=== PATIENT | male | born 1955 | race Caucasian/White ===

== ENCOUNTER 2022-09-17 09:13 | Outpatient (CLI) | payer MEDICARE, BC, SELFPAY | END 2022-09-17 09:14 | disposition home or self-care (01) | PROVIDERS: PCP Surgery; Visit Provider Family Medicine | DX: M17.11 Unilateral primary osteoarthritis, right knee (principal); M25.561 Pain in right knee | CPT/HCPCS: 64454; J2250; J3010 ==

== ENCOUNTER 2022-10-05 12:06 | Outpatient (CLI) | payer MEDICARE, BC, SELFPAY | END 2022-10-05 12:07 | disposition home or self-care (01) | PROVIDERS: PCP Surgery; Visit Provider Family Medicine | DX: M17.11 Unilateral primary osteoarthritis, right knee (principal); G89.29 Other chronic pain; M25.561 Pain in right knee | CPT/HCPCS: 64624; J2250; J3010 ==

== ENCOUNTER 2022-10-12 07:27 | Outpatient (CLI) | payer MEDICARE, BC, SELFPAY | END 2022-10-12 07:28 | disposition home or self-care (01) | LOC: INJ CL 07:28 | PROVIDERS: PCP Surgery; Visit Provider Family Medicine | DX: M54.16 Radiculopathy, lumbar region (principal) | CPT/HCPCS: 64483; J1100; Q9966 ==

== ENCOUNTER 2023-09-02 14:40 | Emergency (ER) | payer MEDICARE, BC, SELFPAY ==
[2023-09-02 14:52] VITALS: BP 137/80; PULSE 70; RESP 16; TEMP 37; O2SAT 96; BMI 33.0
--- NOTE | 2023-09-02 15:01 | ED_ITS ---
HPI - General Adult General Chief complaint: Ear/Nose/Throat Problem Stated complaint: bleeding out of L ear, surgery neck aug 04 Time Seen by Provider: 09/02/23 15:00 History of Present Illness HPI narrative: at 1400 pt went to use air compressor to clean out vacuum, put on ear muffs and noticed bleeding from L ear. put ear muffs back on to finish cleaning it and blood gush out of L ear. 08/04 had neck surgery in [place]. 68-year-old man presenting to the emergency department with concern bleeding from his left ear. Is accompanied by spouse. Did have a recent neck procedure/surgery and is concerned about potentially related bleed. About an hour prior to this interview had been doing some cleaning. This did involve an air compressor and it did not go near his ear. However I believe prior to this placed on some ear muffs and then noted some bleeding from this left ear. Finishing cleaning remove the ear muffs and then more blood was noted. The presented promptly to the emergency department with understandable concern. No bleeding specific to surgical wound. Is not anticoagulated Related Data Home Medications Medication Instructions Recorded Confirmed atorvastatin 20 mg tablet 20 mg PO QPM 09/02/23 09/02/23 celecoxib 200 mg capsule 200 mg PO DAILY 09/02/23 09/02/23 gabapentin 300 mg capsule 600 mg PO 3XD 09/02/23 09/02/23 tamsulosin 0.4 mg capsule 0.4 mg PO DAILY 09/02/23 09/02/23 Allergies Allergy/AdvReac Type Severity Reaction Status Date / Time amoxicillin Allergy Unknown Verified 09/02/23 14:56 Review of Systems Status of ROS: Reports: 6 or more systems reviewed and unremarkable except as noted in History and below PFSH PENDING SALE TO [facility] Social History Smoking Status: Unknown if ever smoked Exam Narrative: Exam Narrative: Very pleasant. Breathing easily. Skin is warm and dry. Neck is supple. Surgical incision is well healing without swelling in his neck. Examination of the right ear is unremarkable. Examination of the left ear after cleaning away some dried blood, I do not see any bleeding within the ear canal. There is no tenderness in particular palpation or movement of the tragus or pinna. There are 2 very fine neck is in the upper outer aspect of the pinna. The larger of the 2 oozes just a little once manipulated. Const: Vital Signs, click to edit/add: Vital Signs - 24 hr 09/02/23 14:52 Temperature 98.6 F Pulse Rate [Pulse Oximeter] 70 Respiratory Rate 16 Blood Pressure [Le ft Upper Arm] 137/80 Pulse Oximetry 96 Oxygen Delivery Me thod Room Air Documenting provider has reviewed patient's vital signs: yes Course Vital Signs Vital signs: Initial Vital Signs Temperature 98.6 F 09/02/23 14:52 Temperature Source Temporal Artery Scan 09/02/23 14:52 Pulse Rate 70 09/02/23 14:52 Respiratory Rate 16 09/02/23 14:52 Blood Pressure 137/80 09/02/23 14:52 Blood Pressure Mean 99 09/02/23 14:52 Pulse Oximetry 96 09/02/23 14:52 Oxygen Delivery Method Room Air 09/02/23 14:52 Vital Signs Temperature 98.6 F 09/02/23 14:52 Pulse Rate 70 09/02/23 14:52 Respiratory Rate 16 09/02/23 14:52 Blood Pressure 137/80 09/02/23 14:52 Pulse Oximetry 96 09/02/23 14:52 Oxygen Delivery Method Room Air 09/02/23 14:52 Temperature 98.6 F 09/02/23 14:52 Pulse Rate 70 09/02/23 14:52 Respiratory Rate 16 09/02/23 14:52 Blood Pressure 137/80 09/02/23 14:52 Pulse Oximetry 96 09/02/23 14:52 Oxygen Delivery Method Room Air 09/02/23 14:52 Medical Decision Making MDM Narrative Medical decision making narrative: Seems quite surprised and a little embarrassed that this is a relatively minor issue. I note that can be remarkable amount of blood in this area, the head. Silver nitrate to further control bleeding. See patient discharge plan Discharge Plan Discharge Clinical Impression: Laceration of ear, external, left Additional Instructions: Just monitor for further bleeding. Would apply pressure in that case. If ranulfo ot get control in an hour, return to the emergency department. Prescriptions: No Action celecoxib 200 mg capsule 200 mg PO DAILY atorvastatin 20 mg tablet 20 mg PO QPM tamsulosin 0.4 mg capsule 0.4 mg PO DAILY gabapentin 300 mg capsule 600 mg PO 3XD Follow Up/Referrals: Elliott Kelley MD [Primary Care Provider] - Stand Alone Forms: [facility] Info Instructions
== END 2023-09-02 15:33 | disposition home or self-care (01) ==
PROVIDERS: Emergency Provider Family Medicine; PCP Surgery
DX: S01.312A Laceration without foreign body of left ear, initial encounter (principal); W26.9XXA Contact with unspecified sharp object(s), initial encounter
CPT/HCPCS: 99282; 99283

== ENCOUNTER 2023-11-07 09:00 | Outpatient (RCR) | payer OTHER, MEDICARE, BC, SELFPAY | END 2023-11-23 09:01 | disposition home or self-care (01) | PROVIDERS: PCP Surgery; Visit Provider Orthopaedic Surgery | DX: M54.2 Cervicalgia (principal); Z98.890 Other specified postprocedural states; R29.898 Other symptoms and signs involving the musculoskeletal system; Z51.89 Encounter for other specified aftercare | CPT/HCPCS: 97110; 97140; 97161 ==

== ENCOUNTER 2024-03-06 12:33 | Outpatient (CLI) | payer MEDICARE, BC, SELFPAY | END 2024-03-06 12:34 | disposition home or self-care (01) | LOC: INJ CL 12:34 | PROVIDERS: PCP Surgery; Visit Provider Family Medicine | DX: M17.11 Unilateral primary osteoarthritis, right knee (principal); M25.561 Pain in right knee | CPT/HCPCS: 64454 ==

== ENCOUNTER 2024-03-27 11:58 | Outpatient (CLI) | payer MEDICARE, BC, SELFPAY | END 2024-03-27 11:59 | disposition home or self-care (01) | LOC: INJ CL 11:59 | PROVIDERS: PCP Surgery; Visit Provider Family Medicine | DX: M17.11 Unilateral primary osteoarthritis, right knee (principal); M25.561 Pain in right knee; G89.29 Other chronic pain | CPT/HCPCS: 64624 ==

== ENCOUNTER 2024-07-17 07:02 | Outpatient (CLI) | payer MEDICARE, BC, SELFPAY | END 2024-07-17 07:03 | disposition home or self-care (01) | LOC: INJ CL 07:03 | PROVIDERS: PCP Surgery; Visit Provider Family Medicine | DX: M54.16 Radiculopathy, lumbar region (principal); M51.369 Other intervertebral disc degeneration, lumbar region without mention of lumbar back pain or lower extremity pain | CPT/HCPCS: 64483; J1100; Q9966 ==

== ENCOUNTER 2024-09-07 12:26 | Emergency (ER) | payer MEDICARE, BC, SELFPAY ==
--- OUTSIDE RECORDS SUMMARY | 2024-09-07 12:29 | XMS_ITS | Encounter Summary ---
Author Organization [facility] Address [address] [place] [address] Care Team Providers Care Box Turner Name Role Phone Unavailable Primary Care Provider Unavailabl e Encounter Details Date Type Department Care Team (Late st Contact Info) Description 10/01/2011 Historical Ophthalmology RST OPH Vince Nolan M.D. 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 - 10/01/2011 8:10 AM CST Eye General CHIEF COMPLAINT follow-up after PTK HISTORY OF PRESENT ILLNESS Comfortable, vision stable. IMPRESSION / REPORT / PLAN #1 s/p Phototherapeutic keratectomy, left eye. Doing well. Removed BCL, epi intact. Moxifloxacin 0.5%, 1 drop 4x/day into operative eye per instructions. Prednisolone acetate 1%, 1 drop 4x/day into operative eye and taper per instructions. Call if decreased vision, increased photophobia, pain, discharge or increased redness occurs. Follow-up in 5-6 weeks DIAGNOSIS #1 s/p Phototherapeutic keratectomy, left eye. CDM Reports - EYEGEN Id: [id number] Status: Fnl documented in this encounter Plan of Treatment Not on file documented as of this encounter Visit Diagnoses Not on filedocumented in this encounter
--- OUTSIDE RECORDS SUMMARY | 2024-09-07 12:29 | XMS_ITS ---
Author Organization [facility] Address [address] [place] [address] Care Team Providers Care Dirt Supervisor Name Role Phone Unavailable Unavailable Unavailable Surgery Details Not on file Complications Check Surgery Details section. Procedure Estimated Blood Loss Check Surgery Details section. Procedure Findings Check Surgery Details section. Procedure Specimens Taken Check Surgery Details section.
--- OUTSIDE RECORDS SUMMARY | 2024-09-07 12:29 | XMS_ITS | Encounter Summary ---
Author Organization [facility] Address [address] [place] [address] Care Team Providers Care Perinatal Specialist Name Role Phone Unavailable Primary Care Provider Unavailabl e Encounter Details Date Type Department Care Team (Late st Contact Info) Description 09/09/2011 Historical Ophthalmology RST OPH Vince Nolan M.D. 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 - 09/09/2011 9:54 AM CST Eye General CHIEF COMPLAINT Left eye blurred vision. HISTORY OF PRESENT ILLNESS Foreign body left eye with resulting corneal scar left eye in 2009., causing blurred vision . No irritation or mattering either eye. History of floaters both eyes. 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 Spectacle correction does not give good vision. No pain or other associated symptoms. IMPRESSION / REPORT / PLAN TOPOGPRAPHY ACQUIRED: irregular astigmatism, left eye; normal right eye #1 Corneal scar, left eye Causing #2, though RGP over-refraction did not make a big subjective improvement. Opacity might be contributing and does have some epi irregularity. Discussed options Plan: PTK left eye (he asked about refractive correction/PRK, but does not want out of pocket expense) #2 Irregular astigmatism, left eye Secondary to #1 DIAGNOSIS #1 Corneal scar, left eye #2 Irregular astigmatism, left eye CDM Reports - EYEGEN Id: [id number] Status: Fnl documented in this encounter Plan of Treatment Not on file documented as of this encounter Visit Diagnoses Not on filedocumented in this encounter
--- OUTSIDE RECORDS SUMMARY | 2024-09-07 12:29 | XMS_ITS | Encounter Summary ---
Author Organization [facility] Address [address] [place] [address] Care Team Providers Care Online Communications Specialist Name Role Phone Unavailable Primary Care Provider Unavailabl e Encounter Details Date Type Department Care Team (Late st Contact Info) Description 09/29/2011 Historical Ophthalmology RST OPH Vince Nolan M.D. 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 - 09/29/2011 7:23 AM CST Eye General CHIEF COMPLAINT one day s/p PTK left eye HISTORY OF PRESENT ILLNESS Tearing left eye this morning. Slight scratchy feeling left eye. IMPRESSION / REPORT / PLAN #1 s/p Phototherapeutic keratectomy, left eye. Doing well. Moxifloxacin 0.5%, 1 drop 4x/day into operative eye. Prednisolone acetate 1%, 1 drop 4x/day into operative eye. Call if decreased vision, increased photophobia, pain, discharge or increased redness occurs. Follow-up in 2 days. DIAGNOSIS #1 s/p Phototherapeutic keratectomy, left eye. CDM Reports - EYEGEN Id: [id number] Status: Fnl documented in this encounter Plan of Treatment Not on file documented as of this encounter Visit Diagnoses Not on filedocumented in this encounter
--- OUTSIDE RECORDS SUMMARY | 2024-09-07 12:29 | XMS_ITS | Clinical Summary ---
Author Organization [facility] Address [place], [place] [address] Care Team Providers Care Sales Forecast Analyst Name Role Phone Kb Durant MD [facility] Elliott Duarte MD Primary Care Provider [phone] Allergies Active Allergy Reactions Criticality Noted Date Comments Adhesive Tape-Silicones Contact Dermatitis,Rash Medium 10/17/2019 blisters Amoxicillin Rash Medium 12/30/2006 Latex Rash Medium 08/04/2023 Medications FISH OIL 1,000 MG CAP Take 1 Capsule by mouth once daily. 0 0 03/27/20 09 Active cycloSPORINE (RESTASIS) 0.05 % ophthalmic emulsion Place 1 Drop into both eyes 2 times daily. 0 04/16/20 13 Active cholecalciferol (VITAMIN D3) 1,000 unit capsule Take 1,000 units by mouth once daily. Active polyethylene glycoL (MIRALAX) 17 gram/dose powder Take 17 g by mouth once daily if needed for Constipation. Active sennosides-docusa te, 8.6-50 mg, (SENOKOT S) 8.6-50 mg tablet Take 1 tablet by mouth 2 times daily. 05/19/20 18 Active SUMAtriptan (IMITREX) 100 mg tabletIndications :Other migraine without status migrainosus, not intractable Take 1 Tablet (100 mg) by mouth 2 times daily if needed for Headache. 12 Tablet 04/06/20 23 Active acetaminophen (Tylenol Extra Strength) 500 mg tabletIndications :pain Take 1,000 mg by mouth every 6 hours if needed for Pain. Max acetaminophen dose: 4000mg in 24 hrs. Active fexofenadine (LYRIC) 180 mg tablet Take 180 mg by mouth one time if needed. Active sildenafiL, pulm.hypertension , (REVATIO) 20 mg tabletIndications :Erectile dysfunction, unspecified erectile dysfunction type Take 1 to 5 tablets by mouth 30 mins prior to sexual intercourse. start at 1 tablet and increase next time if needed 30 Tablet 11 05/10/20 24 Active diclofenac topical (VOLTAREN) 1 % gelIndications:Ch ronic pain of both knees Apply 4 g topically to affected area(s) four times daily. 200 g 06/30/20 24 Active atorvastatin (LIPITOR) 20 mg tabletIndications :Hyperlipidemia, unspecified hyperlipidemia type Take 1 Tablet (20 mg) by mouth at bedtime. 90 Tablet 3 07/12/20 24 Active celecoxib (CELEBREX) 200 mg capsuleIndication s:Foraminal stenosis of cervical region Take 1 Capsule (200 mg) by mouth once daily with a meal. 90 Capsule 3 07/12/20 24 Active gabapentin (NEURONTIN) 600 mg tabletIndications :Lumbar radiculopathy,For aminal stenosis of cervical region Take 1 Tablet (600 mg) by mouth three times daily. 270 Tablet 3 07/12/20 24 Active tamsulosin 0.4 mg capsuleIndication s:Benign prostatic hyperplasia, unspecified whether lower urinary tract symptoms present Take 1 Capsule (0.4 mg) by mouth once daily after a meal. 90 Capsule 3 07/12/20 24 Active clotrimazole (LOTRIMIN) 1 % creamIndications: Balanitis Apply topically to affected area(s) two times daily. 45 g 3 07/12/20 24 Active mupirocin 2% ointmentIndicatio ns:Nasal sore Apply topically to nose twice a day for 2 weeks. 22 g 08/16/20 24 Active azelastine 137 mcg/actuation (ASTELIN) nasal sprayIndications: Chronic nasal congestion Inhale 2 Sprays into affected nostril(s) two times daily. 90 mL 3 08/16/20 24 Active fluticasone (50 mcg per actuation) nasal solution (FLONASE)Indicati ons:Dysfunction of right eustachian tube Inhale 2 Sprays in both nostrils once daily. 48 g 3 08/16/20 24 Active azelastine 137 mcg/actuation (ASTELIN) nasal sprayIndications: Chronic nasal congestion Inhale 2 Sprays into affected nostril(s) two times daily. 60 mL 3 07/12/20 24 024 Discontin ued(Reord er (E-cancel not sent)) fluticasone (50 mcg per actuation) nasal solution (FLONASE)Indicati ons:Dysfunction of right eustachian tube Inhale 1 [place] in both nostrils once daily. 48 g 3 07/12/20 24 024 Discontin ued(Reord er (E-cancel not sent)) Active Problems Problem Noted Date Diagnosed Date Serrated adenoma of colon 07/12/2024 Overview (07/12/2024): 4 mm polyp removed on colonoscopy 11/09/2019 - 5-10 year follow up recommended - patient prefers earlier follow up Primary osteoarthritis of right knee 11/19/2023 Overview (12/07/2023): Jun 2022; right knee cortisone injection. October 2023: repeat right knee cortisone injection. December 06, 2023: Synvisc One injection. Hyperlipidemia 05/24/2023 Benign prostatic hyperplasia 05/24/2023 Not currently working due to disabled status Prostatitis 12/29/2015 Migraine 12/03/2013 History of tympanostomy 11/28/2012 Overview (11/28/2012): right ear, treatment for pressure; Per ENT patient should be keeping right ear dry. Lavage should not be attempted. Bilateral asymmetric sensorineural hearing loss 11/28/2012 Overview (11/28/2012): left ear Degeneration of lumbar or lumbosacral interverte bral disc 08/18/2011 Active M ni re's disease, cochleovestibular 07/30/2011 Overview (11/29/2012): Vertigo, dizziness, aural pressure, tinnitus Resolved Problems Problem Noted Date Diagnosed Date Resolved Date Biventricular congestive heart failure 02/05/2022 02/05/2022 Pelvic pain in male 12/29/2015 05/24/20 23 History of falling 11/29/2012 3 Overview (11/29/2012): twice in the last year Subjective tinnitus 11/29/2012 05/24/20 23 Overview (11/29/2012): Reportedly exacerbated by cigarette smoke Mixed hearing loss, unilateral 11/28/2012 08/25/2017 Overview (11/28/2012): right ear Screen for colon cancer 09/22/201104/30 Overview (09/22/2011): Colonoscopy 08/2011 normal repeat in 10 years Encounters Date Type Department Care Team Description 09/07/2024 Nurse Triage [facility] [address] [place] [address] Elliott Kelley MD Shoulder Injury 09/07/2024 Nurse Triage [facility] [address] [place] [address] Elliott Kelley MD 09/03/2024 10:02 AM MEASUREMENT SPECIALIST - 09/03/2024 11:59 PM MEASUREMENT SPECIALIST Hospital Encounter [facility] [address] [place] [address] Shahriar Duarte MD Pain of cervical spine 09/03/2024 Travel 08/17/2024 1:45 PM MEASUREMENT SPECIALIST Office Visit [facility] [address] [place] [address] Hay Davidson MD Testing (EMG bilateral upper extremities/) 08/17/2024 Travel 08/16/2024 Telephone [facility] [address] [place] [address] Teddy Mendoza MD Results (MRI results.) 08/16/2024 Telephone [facility] [address] [place] [address] Elliott Kelley MD Medication Management (fluticasone (50 mcg per actuation) nasal solution (FLONASE)/azelastine 137 mcg/actuation (ASTELIN) nasal spray/) 08/15/2024 Orders Only [facility] Scanner 1 scan: (1-Ord) TAREEN DERMATOLOGY, BIOPSY BY SHAVE METHOD, 08/15/2024 08/15/2024 Refill [facility] [address] [place] [address] Elliott Kelley MD Refill Request (Mupirocin) 08/14/2024 Transcribe Orders [facility] [address] [place] [address] Shahriar Duarte MD 07/30/2024 8:30 AM MEASUREMENT SPECIALIST Office Visit [facility] [address] [place] [address] Malissa Otoole AuD Hearing Problem (Hearing test) 07/30/2024 Travel 07/17/2024 7:40 AM MEASUREMENT SPECIALIST Office Visit [facility] at [address] [phone] Teddy Mendoza MD Procedure (Bilateral L3-4 TFESI) 07/12/2024 9:00 AM MEASUREMENT SPECIALIST Office Visit [facility] [address] [place] [address] Elliott Kelley MD Medicare ANNUAL (subsequent) Visit (68 yr old male) 07/12/2024 Travel 07/03/2024 Refill [facility] [address] [place] [address] Elliott Kelley MD Refill Request (Azelastine 137 Mcg/actuation) 06/26/2024 Refill [facility] [address] [place] [address] Elliott Kelley MD Refill Request (Diclofenac Topical) 06/14/2024 8:40 AM CDT Office Visit [facility] [address] [place] [address] Teddy Mendoza MD Musculoskeletal Problem (R knee pain, Back pain ) 06/14/2024 Travel from Last 3 Months Immunizations Name Administration Dates Next Due AMB Influenza, IIV3 (Age >=3 years)(Flu Clinic Only) 06/28/2012,07/17/2010,06/20/2008 AMB Influenza, IIV4 PF (=>6 mos Flulaval,Fluzone Fluarix)(Flu Clinic Only) 06/06/2020,06/08/2016 COVID-19 vaccine (Pfizer-Bio NTech 30mcg/0.3mL) 12YO+ ERIC-SUCROSE PF, MDV 01/11/2022 COVID-19 vaccine (Pfizer-Bio NTech 30mcg/0.3mL) PF, MDV 12/03/2020,11/12/2020 DTaP 12/22/2009 Hepatitis B (Adult) 08/05/2003,07/05/2003 Hepatitis B (Peds) 01/15/2004 Hepatitis B, Unspecified 01/15/2004,08/05/2003,1 09/04/2002 Influenza A (H1N1), Inactivated 08/19/2009 Influenza A (H1N1), Inactiva kary (Age >=3 Years) 08/19/2009 Influenza Virus, Unspecified 05/10/2019, 04/27/2018,07/17/2010,08/05,06/20/2008,06/14/2007 Influenza, High-dose Inactivated 06/11/2024 Influenza, High-dose Quadriv alent Inactivated 06/29/2023,07/02/2022 Influenza, IIV3 (Age 6-35 mos) 06/11/2011,2008 Influenza, IIV3 (Age >=3 years) 05/17/20 13,06/28/2012,06/11/2011,07/17,08/05/2009,06/20/2008,06/14/2007 Influenza, IIV4 06/10/2021, 9,04/19/2018,06/08,06/25/2015,05/24/2014 Influenza, IIV4 (=>6mos) MDV 06/24/2017 Pneumococcal Conj 20-valent (Prevnar 20) 02/23/2022 RSV, Recombinant ADJ Reconst ituted (Arexvy 120MCG/0.5mL) 07/12/2023 Td (Age >=7 Years) 04/09/1997 Tdap 09/25/2020,12/22/2009 Zoster (Shingrix-RZV, recombinant) 05/01/2021, Zoster (Zostavax-ZVL, live) 02/18/2017 Family History Medical History Relation Name Comments Other Brother 1 Prostate issues Heart attack Brother 2 COPD Brother 3 Cancer Father Unknown primary - possibly bladder Heart attack Father Other Father heart valve rep lacement Stroke Father Hypertension Mother Thyroid Disease Sister 1 Cancer-colon No Family History Relation Name Status Comments Brother 1 Alive Brother 2 Alive Brother 3 Alive Brother 4 Alive Father (Age 67) Pancreas c ancer Mother (Age 83) Cerebral a neurysm Sister 1 Alive Sister 2 Alive Sister 3 Alive Social History Tobacco Use Types Packs/Day Years Used Date Smoking Tobacco: Former Cigarettes Q uit: 08/29/1994 Smokeless Tobacco: Never Tobacco Cessation:Counseling Given: No Alcohol Use Standard Drinks/Week Comments No 0 (1 standard drink = 0.6 oz pur e alcohol) PHQ-2 Answer Date Recorded PHQ-2 TOTAL SCORE 0 07/12/2024 Social Connections Answer Date Recorded Do you often feel lonely or isolated from those around you? 0 08/04/2023 Financial Resource Strain Answer Date R ecorded Difficulty of Paying Living Expenses 3 08/04/2023 Difficulty of Paying Living Expenses Not on file 08/04/2023 Food Insecurity Answer Date Recorded Do you worry your food will run out before you are able to buy more? 1 08/04/2023 Transportation Needs Answer Date Record ed Does lack of transportation keep you from medica l appointments? 1 08/04/2023 Does lack of transportation keep you from work, meetings or getting things that you need? 1 08/04/2023 Housing Stability Answer Date Recorded What is your housing situation today? 1 08/04/2023 Sex and Gender Information Value Date Recorded Sex Assigned at Not on file Legal Sex Male 7:16 AM MEASUREMENT SPECIALIST Gender Identity Not on file Sexual Orientation Not on file Occupation Industry Job Start Date Job End Date disabled Not on file Not on file Not on file Obstetrics History Last Filed Vital Signs Vital Sign Reading Time Taken Comments Blood Pressure 134/72 07/12/2024 9:09 AM MEASUREMENT SPECIALIST Pulse 65 07/12/2024 9:09 AM MEASUREMENT SPECIALIST Temperature 36.6 C (97.9 F) 06/14/2024 8:41 AM CDT Respiratory Rate 15 08/06/2023 6:44 AM MEASUREMENT SPECIALIST Oxygen Saturation 99% 07/12/2024 9:09 AM MEASUREMENT SPECIALIST Inhaled Oxygen Concentration - - Weight 97.2 kg (214 lb 3.2 oz) 07/12/2024 9:09 A M MEASUREMENT SPECIALIST Height 172.7 cm (5' 8) 07/12/2024 9:09 AM MEASUREMENT SPECIALIST Body Mass Index 32.57 07/12/2024 9:09 AM MEASUREMENT SPECIALIST Plan of Treatment Upcoming Encounters Date Type Department Care Team (Late st Contact Info) Description 09/13/2024 8:00 AM MEASUREMENT SPECIALIST Office Visit [facility] [address] [place] [address] Teddy Mendoza MD [address] [place] [address] Health Maintenance Due Date Last Done Comments Colonoscopy through age 75 11/08/202411/08 (Verified in Care Everywhere or Patient Record), 09/22/2011, 09/22/2011 BMI (ht and wt on same day) for age 18+ 07/12/2025 07/12/2024, 05/24/2023, 02/14/2023, Additional history exists Depression screening for age 12+ 07/12/2025 07/12/2024, 05/24/2023, 02/14/2023, Additional history exists Medicare Wellness for age 65+ 07/13/2025, 05/24/2023, 02/23/2022, Additional history exists Lipids for age 45-75 07/12/2029 07/12/2024, 05/24/2023, 02/23/2022, Additional history exists Tetanus booster 09/25/2030 09/25/2020, 11/28, 04/09/1997 Tdap Completed 09/25/2020, 12/22/2009 Hepatitis C screening for ag e 18-79 Completed 10/16/2020, 09/25/2020 Zoster (shingles) series for age 50+ Completed 05/01/2021, 09/25/2020, 02/18/2017 Pneumococcal series for age 50+ Completed RSV vaccine for adults or Completed 07/12/2023 AAA screening age 65-74 Completed 07/18/2023, 01/08 Influenza for age 65+ Completed 06/11/2024 , 06/29/2023, 07/02/2022, Additional history exists COVID-19 vaccine series Completed 08/15/20, 03/14/2024, 07/12/2023, Additional history exists Medical Devices Implanted Type Area Soft Tile Setter Device Identifier Shelf Expiration Date Model / Serial / Lot Ifuse-3d Implanted:Qt y: 1 on 07/17/2020 by Shahriar Duarte MD at [facility] Left: Sacrum [employer] 09/25/2024 / 7065M-90 / [id number] [id number] Putty Implanted:Qt y: 1 on 07/17/2020 by Shahriar Duarte MD at [facility] Left: Sacrum Musculoskeletal Transplant 11/02/2021 / [id number] / Ifuse-3d Implanted:Qt y: 1 on 07/17/2020 by Shahriar Duarte MD at [facility] Left: Sacrum [employer] 03/19/2025 / [id number]-90 / [id number] Ifuse-3d Implanted:Qt y: 1 on 07/17/2020 by Shahirar Duarte MD at [facility] Left: Sacrum [employer] 06/26/2024 / [id number]-90 / [id number] Set Screws And Nuts Implanted:Qt y: 6 on 08/04/2023 by Shahriar Duarte MD at [facility] N/A: Cervical Vertebrae Baydin 1020-00-000 / / Pre-Cut, Pre-Lordosed Nik; Titanium Alloy Implanted:Qt y: 2 on 08/04/2023 by Shahriar Duarte MD at [facility] N/A: Cervical Vertebrae Baydin 1020-64-055 / / Morpheus 6cc - [id number] Implanted:Qt y: 1 on 08/04/2023 by Shahriar Duarte MD at [facility] N/A: Cervical Vertebrae RE-BIOG 12/09/2025 BIOGENNIX / / [id number] Bone Chips 30cc - [id number] Implanted:Qt y: 1 on 08/04/2023 by Shahriar Duarte MD at [facility] N/A: Cervical Vertebrae RE-MTF 04/05/2026 [id number] / / [id number] 51 4.0 Mm Polyaxial Screws Implanted:Qt y: 2 on 08/04/2023 by Shahriar Duarte MD at [facility] N/A: Cervical Vertebrae Baydin 1020-40-126 / / 3.5 Mm Polyaxial Screws Implanted:Qt y: 2 on 08/04/2023 by Shahriar Duarte MD at [facility] N/A: Cervical Vertebrae Baydin 1020-35-112 / / 3.5 Mm Polyaxial Screws Implanted:Qt y: 2 on 08/04/2023 by Shahriar Duarte MD at [facility] N/A: Cervical Vertebrae Baydin 1020-35-114 / / Procedures Procedure Name Priority Date/Time Associated Diagnosis Comments CT SPINE CERVICAL WO Routine 09/03/2024 10:57 AM MEASUREMENT SPECIALIST Pain of cervical spine MR SPINE CERVICAL WO Routine 09/03/2024 10:44 AM MEASUREMENT SPECIALIST Pain of cervical spine EMG Routine 08/17/2024 1:09 PM MEASUREMENT SPECIALIST C7 radiculopathy Carpal tunnel syndrome, bilateral SCAN-OPERATIVE/PRO CEDURE REPORT 08/15/2024 12:00 AM MEASUREMENT SPECIALIST AMB EPIDURAL STEROID INJECTION Routine 07/17/2024 12:00 AM MEASUREMENT SPECIALIST S/P lumbar spinal fusion Lumbar radiculopathy Lumbar facet arthropathy PSA (TOTAL) ([facility]) Routine 07/12/2024 10:26 AM MEASUREMENT SPECIALIST Screening for prostate cancer BASIC METABOLIC PANEL Routine 07/12/2024 10:26 AM MEASUREMENT SPECIALIST Foraminal stenosis of cervical region LIPID PANEL Routine 07/12/2024 10:26 AM MEASUREMENT SPECIALIST Hyperlipidemia, unspecified hyperlipidemia type US ABD AORTA SCREENING Routine 07/18/2023 9:09 AM MEASUREMENT SPECIALIST Screening for AAA (aortic abdominal aneurysm) ANTI HCV Routine 10/16/2020 9:56 AM MEASUREMENT SPECIALIST Need for hepatitis C screening test from Last 3 Months or Most Recently Relevant to Health Maintenance Results * CT SPINE CERVICAL WO (09/03/2024 10:57 AM MEASUREMENT SPECIALIST) Anatomical Region Laterality Modality CERVICAL SPINE, NECK, Spine Comp uted Tomography 09/03/2024 11:5 4 AM MEASUREMENT SPECIALIST Impressions 09/03/2024 11:54 AM MEASUREMENT SPECIALIST 1. Straightening of the normal cervical lordosis. 2. Normal alignment. No fractures 3. Stable mature postop changes C3 through C6. Interval additional postop changes C3 through C7 posteriorly. Hardware appears well seated. Laminectomies at C5 and C6. 4. At C3-4, moderate right and mild left neural foraminal narrowing. 5. At C5-6, mild narrowing of the left neural foramina Please note that all CT scans at this facility use dose modulation, iterative reconstruction, and/or weight-based dosing when appropriate to reduce radiation dose to as low as reasonably achievable. Dictated by Lico German MD @ 09/03/2024 11:54:25 AM (Electronically Signed) Narrative 09/03/2024 11:54 AM MEASUREMENT SPECIALIST For Patients: As a result of the Century Cures Act, medical imaging exams and procedure reports are released immediately into your electronic medical record. You may view this report before your referring provider. If you have questions, please contact your health care provider. INDICATION: Neck pain. COMPARISON: 09/03/2024. TECHNIQUE: Noncontrast CT cervical spine. FINDINGS: Straightening of the normal cervical lordosis likely secondary to a combination of postop change in patient positioning. Normal vertebral body and facet alignment. No fractures. Stable mature postop changes of into discectomy and fusion C3 through C6. Stable interbody fusion of C6 and C7. Additional postoperative changes of laminectomies at C5 and C6 with posterior fusion hardware C3 through C7. Hardware appears well-seated. No prevertebral soft tissue swelling. C1-2: No spinal canal narrowing. C2-3: No spinal canal neural foraminal narrowing. C3-4: Endplate osteophytic ridging. No narrowing of spinal canal. Moderate right and mild left neural foraminal narrowing. C4-5: Postop changes. No spinal canal neural foraminal narrowing. C5-6: Postoperative changes. Spinal canal is decompressed by laminectomy. Mild narrowing of the left neural foramen. No narrowing of the right neural foramen. C6-7: Postop changes. No spinal canal neural foraminal narrowing. C7-T1: No spinal canal or neural foraminal narrowing. Lung apices are clear. Normal soft tissues is visualized neck. Procedure Note Lico German MD, PhD - 09/03/2024 For Patients: As a result of the Century Cures Act, medical imagingexams and procedure reports are released immediately into your electronicmedical record. You may view this report before your referring provider.If you have questions, please contact your health care provider. INDICATION: Neck pain. COMPARISON: 09/03/2024. TECHNIQUE: Noncontrast CT cervical spine. FINDINGS: Straightening of the normal cervical lordosis likely secondary to acombination of postop change in patient positioning. Normal vertebral bodyand facet alignment. No fractures. Stable mature postop changes of into discectomy and fusion C3 through C6.Stable interbody fusion of C6 and C7. Additional postoperative changes of laminectomies at C5 and C6 withposterior fusion hardware C3 through C7. Hardware appears well-seated. Noprevertebral soft tissue swelling. C1-2: No spinal canal narrowing. C2-3: No spinal canal neural foraminal narrowing. C3-4: Endplate osteophytic ridging. No narrowing of spinal canal. Moderateright and mild left neural foraminal narrowing. C4-5: Postop changes. No spinal canal neural foraminal narrowing. C5-6: Postoperative changes. Spinal canal is decompressed by laminectomy.Mild narrowing of the left neural foramen. No narrowing of the rightneural foramen. C6-7: Postop changes. No spinal canal neural foraminal narrowing. C7-T1: No spinal canal or neural foraminal narrowing. Lung apices are clear. Normal soft tissues is visualized neck. IMPRESSION: 1. Straightening of the normal cervical lordosis. 2. Normal alignment. No fractures 3. Stable mature postop changes C3 through C6. Interval additional postopchanges C3 through C7 posteriorly. Hardware appears well seated.Laminectomies at C5 and C6. 4. At C3-4, moderate right and mild left neural foraminal narrowing. 5. At C5-6, mild narrowing of the left neural foramina Please note that all CT scans at this facility use dose modulation,iterative reconstruction, and/or weight-based dosing when appropriate toreduce radiation dose to as low as reasonably achievable. Dictated by Lico German MD @ 09/03/2024 11:54:25 AM (Electronically Signed) us Shahriar Duarte MD CT Final Res ult * MR SPINE CERVICAL WO (09/03/2024 10:44 AM MEASUREMENT SPECIALIST) Anatomical Region Laterality Modality Spine, CERVICAL SPINE Magnetic R esonance 09/03/2024 11:4 2 AM MEASUREMENT SPECIALIST Impressions 09/03/2024 11:42 AM MEASUREMENT SPECIALIST 1. Normal alignment. No fractures 2. Stable mature postoperative changes anterior discectomy and fusion C3 through C6. Interbody fusion C6 and C7. Additional postop changes at C5 and C6 with posterior fusion hardware C4 through C7 3. Normal cord signal. 4. At C2-3, mild narrowing of the spinal canal 5. At C3-4, mild narrowing of the bilateral neural foramina Dictated by Lico German MD @ 09/03/2024 11:42:28 AM (Electronically Signed) Narrative 09/03/2024 11:42 AM MEASUREMENT SPECIALIST For Patients: As a result of the Cures Act, medical imaging exams and procedure reports are released immediately into your electronic medical record. You may view this report before your referring provider. If you have questions, please contact your health care provider. INDICATION: Neck pain. COMPARISON: 07/29/2023. TECHNIQUE: Sagittal T1, T2, and STIR sequences. Axial T2/gradient sequences. FINDINGS: Normal vertebral body facet alignment. No fractures. No vertebral body loss of height. No spondylolisthesis. Stable mature postop changes of anterior discectomy and fusion C3 through C6. Interbody fusion of C6 and C7. Since the previous CT, laminectomies at C5 and C6. Posterior fusion hardware C4 through C7. Normal cord signal. No intradural mass or lesion. C1-2: No spinal canal narrowing. C2-3: Disc generation posted disc bulging disc osteophyte complex. Mild narrowing of spinal canal. No neural foraminal narrowing. C3-4: Postoperative changes. No narrowing of spinal canal. Mild narrowing of bilateral foramina. C4-5: Postoperative changes. No spinal canal neural foraminal narrowing. C5-6: Postop changes. No spinal canal or neural foraminal narrowing. C6-7: Postop changes. No spinal canal or neural foraminal narrowing. C7-T1: No spinal canal or neural foraminal narrowing. No spinal canal or neural foraminal narrowing in the visualized upper thoracic spine. Procedure Note Lico German MD, PhD - 09/03/2024 For Patients: As a result of the Cures Act, medical imagingexams and procedure reports are released immediately into your electronicmedical record. You may view this report before your referring provider.If you have questions, please contact your health care provider. INDICATION: Neck pain. COMPARISON: 07/29/2023. TECHNIQUE: Sagittal T1, T2, and STIR sequences. Axial T2/gradient sequences. FINDINGS: Normal vertebral body facet alignment. No fractures. No vertebral bodyloss of height. No spondylolisthesis. Stable mature postop changes of anterior discectomy and fusion C3 throughC6. Interbody fusion of C6 and C7. Since the previous CT, laminectomies at C5 and C6. Posterior fusionhardware C4 through C7. Normal cord signal. No intradural mass or lesion. C1-2: No spinal canal narrowing. C2-3: Disc generation posted disc bulging disc osteophyte complex. Mildnarrowing of spinal canal. No neural foraminal narrowing. C3-4: Postoperative changes. No narrowing of spinal canal. Mild narrowingof bilateral foramina. C4-5: Postoperative changes. No spinal canal neural foraminal narrowing. C5-6: Postop changes. No spinal canal or neural foraminal narrowing. C6-7: Postop changes. No spinal canal or neural foraminal narrowing. C7-T1: No spinal canal or neural foraminal narrowing. No spinal canal or neural foraminal narrowing in the visualized upperthoracic spine. IMPRESSION: 1. Normal alignment. No fractures 2. Stable mature postoperative changes anterior discectomy and fusion [id number] C6. Interbody fusion C6 and C7. Additional postop changes at C5and C6 with posterior fusion hardware C4 through C7 3. Normal cord signal. 4. At C2-3, mild narrowing of the spinal canal 5. At C3-4, mild narrowing of the bilateral neural foramina Dictated by Lico German MD @ 09/03/2024 11:42:28 AM (Electronically Signed) Shahriar Duarte MD MR Final Res ult * EMG (08/17/2024 1:09 PM MEASUREMENT SPECIALIST) Shahriar Duarte MD NEUROLOGY ORD Final Res ult * SCAN-OPERATIVE/PROCEDURE REPORT (08/15/2024 12:00 AM MEASUREMENT SPECIALIST) Scanner OTHER Final Result * AMB EPIDURAL STEROID INJECTION (07/17/2024 12:00 AM MEASUREMENT SPECIALIST) Teddy Mendoza MD NEUROLOGY ORD Final Resu lt * PSA (TOTAL) ([facility]) (07/12/2024 10:26 AM MEASUREMENT SPECIALIST) PSA, TOTAL 1.06 < OR = 4.00 ng/mL [facility] Comment: The total PSA value from this assay system is standardized against the WHO standard. The test result will be approximately 20% lower when compared to the equimolar-standardized total PSA (Sam Laurita). Comparison of serial PSA results should be interpreted with this fact in mind. This test was performed using the Siemens chemiluminescent method. Values obtained from different assay methods cannot be used interchangeably. PSA levels, regardless of value, should not be interpreted as absolute evidence of the presence or absence of disease. Blood BLOOD SPECIMEN / Unknown 07/12/2024 10:26 AM MEASUREMENT SPECIALIST 07/12/2024 10:31 AM MEASUREMENT SPECIALIST Elliott Kelley MD SEND OUTS Final Resu lt [employer] [facility] [employer] [address] [place] [address], [facility] [address] [place] [address] * LIPID PANEL (07/12/2024 10:26 AM MEASUREMENT SPECIALIST) CHOLESTEROL, TOTAL 124 <200 mg/dL [facility] HDL CHOLESTEROL 50 > OR = 40 mg/dL [facility] TRIGLYCERIDES 106 <150 mg/dL [facility] LDL-CHOLESTEROL 55 mg/dL (calc) [facility] Comment: Reference range: <100 Desirable range <100 mg/dL for primary prevention; <70 mg/dL for patients with CHD or diabetic patients with > or = 2 CHD risk factors. LDL-C is now calculated using the Catalina calculation, which is a validated novel method providing better accuracy than the Friedewald equation in the estimation of LDL-C. Monster VIERA et al. JOSE E. 2013;310(19): 7556-3700 (http://education.Buyosphere/faq/TRI333) CHOL/HDLC RATIO 2.5 <5.0 (calc) [facility] NON HDL CHOLESTEROL 74 <130 mg/dL (calc) [facility] Comment: For patients with diabetes plus 1 major ASCVD risk factor, treating to a non-HDL-C goal of <100 mg/dL (LDL-C of <70 mg/dL) is considered a therapeutic option. Blood BLOOD SPECIMEN / Unknown 07/12/2024 10:26 AM MEASUREMENT SPECIALIST 07/12/2024 10:31 AM MEASUREMENT SPECIALIST us Elliott Kelley MD CHEMISTRY Final Resu lt [employer] [facility] [address] [place] [address], [facility] [address] [facility] [place] [address] * (ABNORMAL) BASIC METABOLIC PANEL (07/12/2024 10:26 AM MEASUREMENT SPECIALIST) GLUCOSE 111(H) 65 - 99 mg/dL [facility] Comment: Fasting reference interval For someone without known diabetes, a glucose value between 100 and 125 mg/dL is consistent with prediabetes and should be confirmed with a follow-up test. UREA NITROGEN (BUN) 17 7 - 25 mg/dL [facility] CREATININE 0.96 0.70 - 1.35 mg/dL [facility] EGFR 87 > OR = 60 mL/min/1. 73m2 [facility] BUN/CREATININE RATIO SEE NOTE: 6 - 22 (calc) [facility] Comment: Not Reported: BUN and Creatinine are within reference range. SODIUM 140 135 - 146 mmol/L [facility] POTASSIUM 4.0 3.5 - 5.3 mmol/L [facility] CHLORIDE 104 98 - 110 mmol/L [facility] CARBON DIOXIDE 27 20 - 32 mmol/L [facility] ELECTROLYTE BALANCE 9 7 - 17 mmol/L (calc) [facility] CALCIUM 9.2 8.6 - 10.3 mg/dL [email or web address] Blood BLOOD SPECIMEN / Unknown 07/12/2024 10:26 AM MEASUREMENT SPECIALIST 07/12/2024 10:31 AM MEASUREMENT SPECIALIST us Elliott Kelley MD CHEMISTRY Final Resu lt [facility] [address] [place] [address], [place] [phone] [facility] [address] [place] [address] * US ABD AORTA SCREENING [[id number]] (07/18/2023 9:09 AM MEASUREMENT SPECIALIST) Anatomical Region Laterality Modality Abdomen, AORTA Ultrasound 07/18/2023 2:06 PM MEASUREMENT SPECIALIST Narrative 07/18/2023 2:06 PM MEASUREMENT SPECIALIST For Patients: As a result of the Cures Act, medical imaging exams and procedure reports are released immediately into your electronic medical record. You may view this report before your referring provider. If you have questions, please contact your health care provider. Examination: US abdominal aorta Indication: Abdominal aortic aneurysm screening. Technique: Wilkerson scale and color Doppler images of the aorta and common iliac arteries are obtained. Comparison: CT January 08, 2019 Findings: Proximal aorta: 2.4 x 2.5 cm Mid aorta: 2.3 x 1.9 cm Distal aorta: 1.7 x 2.2 cm Right common iliac artery: 1.2 x 1.4 cm Left common iliac artery: 1.2 x 1.2 cm Impression: No abdominal aortic aneurysm. Dictated by Kb Patel MD @ Jul 18 2023 2:06PM (Electronically Signed) Procedure Note Kb Patel MD - 07/18/2023 For Patients: As a result of the Cures Act, medical imagingexams and procedure reports are released immediately into your electronicmedical record. You may view this report before your referring provider.If you have questions, please contact your health care provider. Examination: US abdominal aorta Indication: Abdominal aortic aneurysm screening. Technique: Wilkerson scale and color Doppler images of the aorta and common iliac arteriesare obtained. Comparison: CT January 08, 2019 Findings: Proximal aorta: 2.4 x 2.5 cm Mid aorta: 2.3 x 1.9 cm Distal aorta: 1.7 x 2.2 cm Right common iliac artery: 1.2 x 1.4 cm Left common iliac artery: 1.2 x 1.2 cm Impression: No abdominal aortic aneurysm. Dictated by Kb Patel MD @ Jul 18 2023 2:06PM (Electronically Signed) Elliott Kelley MD US Final Resu lt * ANTI HCV (10/16/2020 9:56 AM MEASUREMENT SPECIALIST) HEPATITIS C ANTIBODY Non-React howie Non-React howie 10/16/2020 5:41 PM MEASUREMENT SPECIALIST [facility] Comment:Antibodies to HCV no t detected; does not exclude the possibility of exposure to HCV. Blood BLOOD SPECIMEN / Unknown Venipuncture / Unknown 10/16/2020 9:56 AM MEASUREMENT SPECIALIST 10/16/2020 9:56 AM MEASUREMENT SPECIALIST Elliott Kelley MD SEND OUTS Final Resu lt [facility] 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 Healthcare Directive 12/07/2017 11:56 AM H EALTHCARE DIRECTIVE, [facility], 12/02/17 * Full Code (Latest Code Status on File) Date Activated Date Inactivated Comments 08/04/2023 12:59 PM 08/06/2023 7:12 PM Question Answer Comments Code Status Discussion: DiscussedReviewed Prefer lashonda * Full Code Date Activated Date Inactivated Comments 08/04/2023 5:30 AM 08/04/2023 12:58 PM Question Answer Comments Code Status Discussion: Discussed * Full Code Date Activated Date Inactivated Comments 03/12/2021 7:25 AM 03/12/2021 3:18 PM Question Answer Comments Code Status Discussion: Discussed * Full Code Date Activated Date Inactivated Comments 07/17/2020 11:37 AM 07/17/2020 3:51 PM Question Answer Comments Code Status Discussion: Discussed * Full Code Date Activated Date Inactivated Comments 07/17/2020 8:34 AM 07/17/2020 11:37 AM Question Answer Comments Code Status Discussion: Discussed Care Teams Sales Forecast Analyst Relationship Specialty Start Date End Date Elliott Kelley [place] [address] [place] [address] PCP - General Family Practice 10/01/20 Kb Durant MD 10/23/07
--- OUTSIDE RECORDS SUMMARY | 2024-09-07 12:29 | XMS_ITS | Clinical Summary ---
Author Organization [facility] Address [address] [address] Phone Care Team Providers Care Card Checker Name Role Phone Elliott Kelley MD Primary Care Provider [phone] Allergies Active Allergy Reactions Criticality Noted Date Comments Adhesive Tape RASH Medium 10/17/2019 blisters Amoxicillin RASH Medium 12/30/2006 Medications atorvaSTATin (Lipitor) 20 MG tablet Take 20 mg by mouth at bedtime. 3 Active Azelastine HCl 137 MCG/SPRAY Solution INHALE 2 SPRAYS INTO AFFECTED NOSTRIL(S) IN THE MORNING AND 2 SPRAYS IN THE EVENING. BOTH NOTRILS. 3 Active clotrimazole (Lotrimin) 1 % cream APPLY TOPICALLY TO AFFECTED AREA(S) TWO TIMES DAILY. 3 Active cyclobenzaprine (Flexeril) 5 MG tablet 1 (ONE) TABLET EVERY 12 HOURS, NEEDED 3 Active diclofenac (Voltaren) 1 % Gel APPLY 2 TO 4 GRAMS ON SKIN FOUR TIMES DAILY 3 Active gabapentin (Neurontin) 300 MG capsule TAKE 2 CAPSULES BY MOUTH IN THE MORNING, 2 CAPSULES AT NOON, AND 2 CAPSULES AT BEDTIME. 3 Active mupirocin (Bactroban) 2 % ointment Apply to nose twice a day for 2 weeks.* 3 Active sildenafil citrate (Revatio) 20 MG tablet TAKE 1-5 TABLET BY MOUTH 30 MINUTES TO SEXUAL INTERCOURSE. START AT LOWER DOSE (1 TABLET) AND INCREASE BY 1 TABLET IF NEEDED NEXT TIME.* 3 Active tamsulosin (Flomax) 0.4 MG 24 hour capsule TAKE 1 CAPSULE (0.4 MG) BY MOUTH EVERY DAY WITH FOOD 3 Active traMADol (Ultram) 50 MG tablet TAKE 1-2 TABLETS BY MOUTH EVERY 6-8 HOURS 3 Active Immunizations Name Administration Dates Next Due DTaP <7 years 12/22/2009 Hepatitis B, Adult 08/05/2003,07/05/2003 Hepatitis B, Pediatric/adolescent 01/15/2004 Influenza H1N1 With Preservative 08/19/2009 Pneumococcal Conjugate, (Prevnar) 20-valent 01/28 TD >7yrs With Preservative 04/09/1997 Tdap (7 years and older) 09/25/2020,12/22/2009 Zoster Shingrix 2 Dose (Shingles) 05/01/2021, Zoster Zostavax (Shingles) 02/18/2017 Surgical History Surgery Date Site/Laterality Comments COLONOSCOPY 11/09/2019 Per Care Everywhere Social History Tobacco Use Types Packs/Day Years Used Date Smoking Tobacco: Never Assessed Sex and Gender Information Value Date Recorded Sex Assigned at Not on file Legal Sex Male 2:16 PM CDT Gender Identity Not on file Sexual Orientation Not on file Obstetrics History Last Filed Vital Signs Vital Sign Reading Time Taken Comments Blood Pressure 130/70 03/21/2023 8:43 AM CDT Pulse 57 03/21/2023 8:43 AM CDT Temperature 36.1 C (96.9 F) 03/21/2023 8:43 AM CDT Respiratory Rate - - Oxygen Saturation 98% 03/21/2023 8:43 AM CDT Inhaled Oxygen Concentration - - Weight 93.5 kg (206 lb 2.1 oz) 03/21/2023 8:43 A M CDT Height 177.8 cm (5' 10) 03/21/2023 8:43 AM CDT Body Mass Index 29.58 03/21/2023 8:43 AM CDT Plan of Treatment Health Maintenance Due Date Last Done Comments CT Colonography 1956 Cologuard 1956 Colonoscopy 1956 Colorectal Cancer Screening 1956 FIT/FOBT 1955 MEDICARE AWV 1955 Sigmoidoscopy 1955 Hepatitis B Vaccine (Standing Order) (3 of 3 - 19+ 3-dose series) 03/11/2004 01/15/2004, 08/05/2003, 07/05/2003 COVID-19 Vaccine ( - 2023- season) 2024 Influenza Vaccine Seasonal (Standing Order) (#1) 2024 08/19/2009 TETANUS (Standing Order) 09/25/2030 021, 12/22/2009, 12/22/2009, Additional history exists RSV Vaccination (60+ yrs) (Abrysvo/Arexvy) (1 - 1-dose 75+ series) 2031 PERTUSSIS (Standing Order) Completed 09/25, 12/22/2009, 12/22/2009 Shingrix (Zoster recombinant) vaccine (Standing Order) Completed 05/01/2021, 09/25/2020 Pneumococcal Vaccine: 65+ yrs (Standing Order) Completed 02/23/2022 HPV Vaccine (Standing Order) Aged Out No longer eligible based on patient's age to complete this topic Insurance MEDICARE PART A & B [employer] [facility] Care Teams Card Checker Relationship Specialty Start Date End Date Elliott Kelley MD [address] [place] [id number] PCP - General Family Medicine 05/06/23
--- OUTSIDE RECORDS SUMMARY | 2024-09-07 12:29 | XMS_ITS | Clinical Summary ---
Author Organization [facility] Address [address] [place] [address] Care Team Providers Care Revenue Audit Clerk Name Role Phone Unavailable Primary Care Provider Unavailabl e Source Comments Patient records contain information from all sites at [facility]. For routine questions regarding patient records, call [phone] during business hours, M-F 8:00 AM - 5:00 PM Central Time. Record requests for emergency care only can be directed to [phone] at any time.[facility] Allergies Active Allergy Reactions Criticality Noted Date Comments Adhesive Tape-Silicones Other (see comments) Medium blisters Amoxicillin Rash Low 07/23/2016 Medications azelastine (ASTELIN) 137 mcg/spray (0.1 %) nasal spray INHALE TWO SPRAYS IN THE NOSTRIL TWICE DAILY 2 8 Active tamsulosin (FLOMAX) 0.4 mg 24 hr capsule TAKE 1 CAPSULE BY MOUTH ONCE DAILY AFTER A MEAL. 3 8 Active SUMAtriptan (IMITREX) 100 mg tablet Take 1 tablet by mouth once as needed for migraine. 4 Active multivitamin tablet Take 1 tablet by mouth every morning. 4 Active AFLURIA QUAD 9156-9894, PF, 60 mcg/0.5 mL syringe TO BE ADMINISTERED BY PHARMACIST FOR IMMUNIZATION- Had Flu shot completed end of March 2018 0 8 Active cycloSPORINE (RESTASIS) 0.05 % ophthalmic emulsion Administer 1 drop into both eyes every 12 (twelve) hours. 4 Active cholecalciferol (cholecalcifero l) 1,000 Unit tablet Take 1 tablet by mouth every morning. 4 Active fish oil 1,000 mg capsule Take 1,000 mg by mouth daily. Active sennosides-docu sate sodium (SENOKOT-S) 8.6-50 mg per tablet Take 2 tablets by mouth at bedtime. 30 tablet 8 Active polyethylene glycol (MIRALAX) 17 gram/dose oral powder Take 17 g by mouth daily. Dissolve each 17 g dose in 240 mLs (8 ounces) of beverage. Active [id number] zwx-VsHu-QOv-as b-C (MOVIPREP) 100-7.5-2.691 gram per packet Do first portion of prep at 6 PM the evening before. Second portion must be started 3 hrs before and finished 2 hrs prior to report time. 1 box(es) 0 Active Additional Information Patient not taking.Reported on 02/02/2024 atorvastatin (LIPITOR) 20 mg tablet Take 20 mg by mouth at bedtime. Active celecoxib (CeleBREX) 200 mg capsule Take 200 mg by mouth daily. 4 Active clotrimazole (LOTRIMIN) 1 % cream Apply topically 2 (two) times a day. 3 Active cyclobenzaprine (FLEXERIL) 10 mg tablet Take 10 mg by mouth every 8 (eight) hours as needed. Active diclofenac sodium (VOLTAREN) 1 % gel Apply 2 g topically 4 (four) times a day as needed. Active fexofenadine (LYRIC) 180 mg tablet Take 180 mg by mouth as needed for allergies. Active fluticasone propionate (FLONASE) 50 mcg/actuation nasal spray Administer 1 spray into each nostril daily. Active gabapentin (NEURONTIN) 300 mg capsule Take 600 mg by mouth 3 (three) times a day. 1 Active mupirocin (BACTROBAN) 2 % ointment Apply 1 Application topically daily. Apply right nostril Active omega-3 acid ethyl esters (LOVAZA) 1 gram capsule Take 2 g by mouth daily. Active sildenafil (REVATIO) 20 mg tablet Take 1 to 5 tablets by mouth 30 mins prior to sexual intercourse. start at 1 tablet and increase next time if needed* Active Active Problems Problem Noted Date Diagnosed Date Radiculopathy Cervical 09/12/2018 Pain Neck 09/12/2018 Postlaminectomy Syndrome Lumbar 05/16/2018 Meniere's Disease Bilateral 05/16/2018 Post Operative Nausea/Vomiting 05/16/2018 Dysphagia Immunizations Name Administration Dates Next Due DTaP (Infanrix, [employer]) 12/22/2009 H1N1 All Forms 08/19/2009 HepB, Unspecified 01/15/2004,08/05/2003,07/05/20 03 Influenza, Unspecified 07/17/2010,2008,06/20/2008,2006 SARS-COV-2 (COVID-19) - PFIZ ER (Discontinued)(12 years or older) 12/03/2020,11/12/2020 Family History Medical History Relation Name Comments Blood clot Father Cancer Father Relation Name Status Comments Father Social History Tobacco Use Types Packs/Day Years Used Date Smoking Tobacco: Former Smokeless Tobacco: Never Tobacco Cessation:Counseling Given: Not Answered Alcohol Use Standard Drinks/Week Comments No 0 (1 standard drink = 0.6 oz pur e alcohol) Social Connection and Isolat ion Panel [NHANES] Answer Date Recorded In a typical week, how many times do you talk on the phone with family, friends, or neighbors? Once a week 10/16/2019 How often do you get togethe r with friends or relatives? Once a week 10/16/2019 How often do you attend chur ch or congregation services? More than 4 times per year 10/16/2019 Do you belong to any clubs o r organizations such as holiness groups, unions, fraternal or athletic groups, or school groups? Yes 10/16/2019 How often do you attend meet ings of the clubs or organizations you belong to? More than 4 times per year 10/16/2019 Are you , , di vorced, , never , or living with a partner? 10/16/2019 AUDIT-C Answer Date Recorded Q1: How often do you have a drink containing alc ohol? Never 10/16/2019 Average Number of Drinks Not on file 020 Frequency of Binge Drinking Not on file 09/29 Overall Financial Resource Strain (CARDIA) Answe r Date Recorded How hard is it for you to pa y for the very basics like food, housing, medical care, and heating? Not very hard 10/16/2019 [facility] [place] of Occupat ional Health - Occupational Stress Questionnaire Answer Date Recorded Do you feel stress - tense, restless, nervous, or anxious, or unable to sleep at night because your mind is troubled all the time - these days? Not at all 10/16/2019 Exercise Vital Sign Answer Date Recorde d On average, how many days pe r week do you engage in moderate to strenuous exercise (like a brisk walk)? 7 days 10/16/2019 On average, how many minutes do you engage in exercise at this level? 40 min 10/16/2019 Hunger Vital Sign Answer Date Recorded Within the past 12 months, y ou worried that your food would run out before you got the money to buy more. Never true 10/16/19 20 Within the past 12 months, t he food you bought just didn't last and you didn't have money to get more. Never true 10/16/2019 PRAPARE - Transportation Answer Date Re corded In the past 12 months, has l ack of transportation kept you from medical appointments or from getting medications? No 09/29 In the past 12 months, has l ack of transportation kept you from meetings, work, or from getting things needed for daily living? No 10/16/2019 Nutrition Answer Date Recorded Nutrition: EVOO Fat Source Yes 10/16 On average, how many serving s of fruits and vegetables do you eat per day (serving size is equal to 1 cup or approximately the size of a tennis ball)? 4-5 10/16/2019 Dental Answer Date Recorded Dental: Regular Dentist Unknown 10/21/19 Education Answer Date Recorded What is the highest level of school you have completed or the highest degree you have received? 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 Gender Identity Not on file Sexual Orientation Not on file Last Filed Vital Signs Vital Sign Reading Time Taken Comments Blood Pressure 117/70 11/09/2019 9:08 AM CDT Pulse 57 11/09/2019 9:10 AM CDT Temperature 36.5 C (97.7 F) 11/09/2019 8:40 AM CDT Respiratory Rate 11 11/09/2019 9:10 AM CDT Oxygen Saturation 99% 11/09/2019 9:10 AM CDT Inhaled Oxygen Concentration - - Weight 89.3 kg (196 lb 13.9 oz) 11/09/2019 6:45 AM CDT Height 174.4 cm (5' 8.66) 11/02/2019 1 0:10 AM AUTOMATIC NAILING MACHINE FEEDER Body Mass Index 29.36 11/02/2019 10:10 AM AUTOMATIC NAILING MACHINE FEEDER Plan of Treatment Health Maintenance Due Date Last Done Comments CT Colonography 1955 Cologuard 1955 FIT 1955 Hepatitis C Screening 1955 COVID-19 Vaccine ( season) 2024 07/12/2023, 12/23/2022, 07/02/2022, Additional history exists Influenza Vaccine (#1) 2024 , 07/02/2022, 06/10/2021, Additional history exists Depression Screening (Annual PHQ-2) 08/29/2024 Fall Risk Screen (Annual) 08/29/2024 Fasting Glucose for Diabetes Screening 08/04/2026 08/04/2023, 05/24/2023, 02/23/2022, Additional history exists Colonoscopy 11/08/2029 11/09/2019, 11/09/2019 Colorectal Cancer Screening 11/08/2029 DTaP,Tdap,and Td Vaccines (3 - Td or Tdap) 09/25/2030 09/25/2020, 12/22/2009, 12/22/2009 Hepatitis B Vaccines Completed 01/15/2004, 08/05/2003, 07/05/2003 Abdominal Aortic Aneurysm (AAA) Screen Completed 01/08/2019 Zoster Vaccines Completed 05/01/2021, 08/30, 02/18/2017 Pneumococcal vaccine (50+ years) Completed 02/23/2022 IPV Vaccines Aged Out No longer eligi ble based on patient's age to complete this topic Medical Devices Implanted Type Area Psychiatric Technician Device Identifier Shelf Expiration Date Model / Serial / Lot Grft Bn Vvg Dbm 5 - [id number] - [id number] Implanted:Qt y: 1 on 05/16/2018 by Shahriar Duarte M.D., Ph.D. at [facility] Bone or Tissue Spine Lumbar [facility] 03/30/2019 - / [id number] / [facility] [place] - [id number] - [id number] Implanted:Qt y: 1 on 05/16/2018 by Shahriar Duarte M.D., Ph.D. at [facility] Bone or Tissue Spine Lumbar [facility] 03/31/2019 -1599- / [id number] / [facility] - [id number] - [id number] Implanted:Qt y: 1 on 05/17/2018 by Shahriar Duarte M.D., Ph.D. at [facility] Bone or Tissue [facility] 04/04/2019 - / [id number] / [facility] - [id number] - [id number] Implanted:Qt y: 1 on 05/17/2018 by Shahriar Duarte M.D., Ph.D. at [facility] Bone or Tissue [facility] 04/04/2019 - / [id number] / [facility] - [id number] 1 - [id number] Implanted:Qt y: 1 on 05/17/2018 by Shahriar Duarte M.D., Ph.D. at [facility] Bone or Tissue [facility] 05/22/2018 -1599- 001 / [id number] / Spn Nik Mtr Cvd 5.5x60 - [id number] Implanted:Qt y: 1 on 05/17/2018 by Shahriar Duarte M.D., Ph.D. at [facility] Hardware e.g. pins/screws /rods Depuy Synthes 04.636.0 60 / / Spn Nik Mtr Cvd 5.5x65 - [id number] Implanted:Qt y: 1 on 05/17/2018 by Shahriar Duarte M.D., Ph.D. at [facility] Hardware e.g. pins/screws /rods Depuy Synthes 04.636.0 65 / / Spn End Cap Mtr 5.5 - [id number] Implanted:Qt y: 6 on 05/17/2018 by Shahriar Duarte M.D., Ph.D. at [facility] Hardware e.g. pins/screws /rods Depuy Synthes 04.632.0 00 / / Spn Scrw [facility] 5.5 - [id number] Implanted:Qt y: 6 on 05/17/2018 by Shahrira Duarte M.D., Ph.D. at [facility] Hardware e.g. pins/screws /rods Depuy Synthes 04.632.0 01 / / Spn Scrw [facility] Ftd 7x40 - [id number] 9 Implanted:Qt y: 3 on 05/17/2018 by Shahriar Duarte M.D., Ph.D. at [facility] Hardware e.g. pins/screws /rods Depuy Synthes 04.639.7 40 / / [facility] 7x45 - [id number] Implanted:Qt y: 3 on 05/17/2018 by Shahriar Duarte M.D., Ph.D. at [facility] Hardware e.g. pins/screws /rods Depuy Synthes 04.639.7 45 / / Spn Cg Acs [facility] 7y30b91 - [id number] 1 Implanted:Qt y: 2 on 09/12/2018 by Shahriar Duarte M.D., Ph.D. at [facility] Hardware e.g. pins/screws /rods Depuy Synthes 08.843.0 08 / / Spn Cg Acs [facility] 9a75b91 - [id number] 1 Implanted:Qt y: 1 on 09/12/2018 by Shahriar Duarte M.D., Ph.D. at [facility] Hardware e.g. pins/screws /rods Depuy Synthes 08.843.3 07 / / Spn Plt Vct L3 57 - [id number] 1 Implanted:Qt y: 1 on 09/12/2018 by Shahriar Duarte M.D., Ph.D. at [facility] Hardware e.g. pins/screws /rods Depuy Synthes 04.613.2 57 / / Spn Scrw Vct dr 4x18 - [id number] 1 Implanted:Qt y: 4 on 09/12/2018 by Shahriar Duarte M.D., Ph.D. at [facility] Hardware e.g. pins/screws /rods Depuy Synthes 04.613.5 18 / / Spn Scrw Vctt Sfdr 4x18 - [id number] Implanted:Qt y: 4 on 09/12/2018 by Shahriar Duarte M.D., Ph.D. at [facility] Hardware e.g. pins/screws /rods Depuy Spine .613.7 18 / / Spacer Syncage Sm 12 6deg - [id number] Implanted:Qt y: 1 on 05/16/2018 by Shahriar Duarte M.D., Ph.D. at [facility] Spine Implant Spine Lumbar Depuy [employer]ynthes 08/28/2027 08.825.1 02S / / [id number] Spacer Syncage Bam Sm 13.5mm 6 - [id number] Implanted:Qt y: 1 on 05/16/2018 by Shahriar Duarte M.D., Ph.D. at [facility] Spine Implant Spine Lumbar Depuy Synthes [id number] 03/28/2023 08.825.1 03S / / [id number] Procedures Procedure Name Priority Date/Time Associated Diagnosis Comments COLONOSCOPY Routine 11/09/2019 7:42 AM CDT Amyloidosis (HCC) GLUCOSE, FASTING, S/P Routine 10/16/2019 11:43 AM AUTOMATIC NAILING MACHINE FEEDER Failure Heart Biventricular (HCC) Amyloidosis (HCC) from Last 3 Months or Most Recently Relevant to Health Maintenance Results * Glucose, Fasting (10/16/2019 11:43 AM AUTOMATIC NAILING MACHINE FEEDER) Glucose, P 81 70 - 100 mg/dL 10/16/2019 1:03 PM AUTOMATIC NAILING MACHINE FEEDER DTL Last Intake 17 hr 10/16/2019 12:45 PM AUTOMATIC NAILING MACHINE FEEDER DTL Blood (Blood, Venous) 10/16/2019 11:43 AM AUTOMATIC NAILING MACHINE FEEDER 10/16/2019 12:45 PM AUTOMATIC NAILING MACHINE FEEDER Kb Longo M.D., Ph.D. LAB BLOOD NON ADD-ON Fi nal Result [facility] [address] [place] [address], [place] DTL 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 See document viewer. * Full Code (Latest Code Status on File) Date Activated Date Inactivated Comments 09/12/2018 3:14 PM 09/13/2018 3:18 PM Question Answer Comments Full Code: Discussed * Full Code Date Activated Date Inactivated Comments 09/12/2018 6:17 AM 09/12/2018 3:13 PM Question Answer Comments Full Code: Discussed * Full Code Date Activated Date Inactivated Comments 05/17/2018 2:57 PM 05/20/2018 2:09 PM Question Answer Comments Full Code: Discussed * Full Code Date Activated Date Inactivated Comments 05/16/2018 2:51 PM 05/17/2018 2:57 PM Question Answer Comments Full Code: Discussed * Full Code Date Activated Date Inactivated Comments 05/16/2018 6:01 AM 05/16/2018 2:51 PM Question Answer Comments Full Code: Discussed Healthcare Agents on File Name Relationship Healthcare Agent Relationshi p Communication Neri Wong Spouse Health Care Agent
--- OUTSIDE RECORDS SUMMARY | 2024-09-07 12:29 | XMS_ITS | Encounter Summary ---
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 CDM Reports - EYECL Id: [id number] Status: Fnl documented in this encounter Plan of Treatment Not on file documented as of this encounter Visit Diagnoses Not on filedocumented in this encounter
--- OUTSIDE RECORDS SUMMARY | 2024-09-07 12:29 | XMS_ITS | Referral Summary ---
Author Organization [facility] Address [address] [place] [address] Care Team Providers Care Back Shoe Cutter Name Role Phone Unavailable Primary Care Provider Unavailabl e Source Comments Patient records contain information from all sites at [facility]. For routine questions regarding patient records, call [phone] during business hours, M-F 8:00 AM - 5:00 PM Central Time. Record requests for emergency care only can be directed to [phone] at any time.[facility] Allergies Active Allergy Reactions Criticality Noted Date [...] mouth every morning. 4 Active AFLURIA QUAD 6550-4627, PF, 60 mcg/0.5 mL syringe TO BE [...] 240 mLs (8 ounces) of beverage. Active zzm3801-dhe xvf-AmKs-YJj-as b-C (MOVIPREP) 100-7.5-2.691 gram per packet Do [...] PFIZ ER (Discontinued)(12 years or older) 12/03/2020,11/12/2020 Social History Tobacco Use Types Packs/Day Years [...] often do you attend chur ch or amish services? More than 4 times per year 10/16/2019 Do you belong to any clubs o r organizations such as muslim groups, unions, fraternal or athletic groups, or [...] care, and heating? Not very hard 10/16/2019 [facility] [place] of Occupat ional Health - Occupational Stress [...] on file Legal Sex Male 6:48 AM ARMY RANGER Gender Identity Not on file Sexual Orientation [...] Weight 89.3 kg (196 lb 13.9 oz) 020 6:45 AM CDT Height 174.4 cm (5' 8.66) 11/02/2019 1 0:10 AM ARMY RANGER Body Mass Index 29.36 11/02/2019 10:10 AM ARMY RANGER Plan of Treatment Not on file Medical Devices Implanted Type Area Mold Maker Helper Device Identifier Shelf Expiration Date Model / Serial / Lot [facility] 5 - [id number] 4 - [id number] Implanted:Qt y: 1 on 05/16/2018 by Shahriar Duarte M.D., Ph.D. at [facility] Bone or Tissue Spine Lumbar [facility] 03/30/2019 -1600- 002 / [id number] / [facility] [place] - [id number] 6 - [id number] Implanted:Qt y: 1 on 05/16/2018 by Shahriar Duarte M.D., Ph.D. at [facility] Bone or Tissue Spine Lumbar [facility] 03/31/2019 -1599- / [id number] / [facility] [place] - [id number] 8 - [id number] Implanted:Qt y: 1 on 05/17/2018 by Shahriar Duarte M.D., Ph.D. at [facility] Bone or Tissue [facility] 04/04/2019 -1600- 002 / [id number] / [facility] [place] - [id number] 4 - [id number] Implanted:Qt y: 1 on 05/17/2018 by Shahriar Duarte M.D., Ph.D. at [facility] Bone or Tissue [facility] 04/04/2019 -1599- 002 / [id number] / [facility] [place] - [id number] 1 - [id number] Implanted:Qt y: 1 on 05/17/2018 by Shahriar Duarte M.D., Ph.D. at [facility] 05/22/2018 BL-1600- 001 / [id number] / Spn Nik Mtr Cvd 5.5x60 - [id number] Implanted:Qt y: 1 on 05/17/2018 by Shahriar Duarte M.D., Ph.D. at [facility] Hardware e.g. pins/screws /rods Depuy Synthes 04.636.0 60 / / Spn Nik Mtr Cvd 5.5x65 - [id number] Implanted:Qt y: 1 on 05/17/2018 by Shahriar Duarte M.D., Ph.D. at [facility] Hardware e.g. pins/screws /rods Depuy Synthes 04.636.0 65 / / Spn End Cap Mtr 5.5 - [id number] Implanted:Qt y: 6 on 05/17/2018 by Shahriar Duarte M.D., Ph.D. at [facility] Hardware e.g. pins/screws /rods Depuy Synthes 04.632.0 00 / / Spn Scrw Mtr 5.5 - [id number] Implanted:Qt y: 6 on 05/17/2018 by Shahriar Duarte M.D., Ph.D. at [facility] Hardware e.g. pins/screws /rods Depuy Synthes 04.632.0 01 / / Spn Scrw [facility] 7x40 - [id number] Implanted:Qt y: 3 on 05/17/2018 by Shahriar Duarte M.D., Ph.D. at [facility] Hardware e.g. pins/screws /rods Depuy Synthes 04.639.7 40 / / Spn Scrw [facility] 7x45 - [id number] Implanted:Qt y: 3 on 05/17/2018 by Shahriar Duarte M.D., Ph.D. at [facility] Hardware e.g. pins/screws /rods Depuy Synthes 04.639.7 45 / / Spn Cg Acs Cerv 1q28b90 - [id number] 1 Implanted:Qt y: 2 on 09/12/2018 by Shahriar Duarte M.D., Ph.D. at [facility] Hardware e.g. pins/screws /rods Depuy Synthes 08.843.0 08 / / Spn Cg Acs Cerv 6l58d72 - [id number] 1 Implanted:Qt y: 1 on 09/12/2018 by Shahriar Duarte M.D., Ph.D. at [facility] Hardware e.g. pins/screws /rods Depuy Synthes 08.843.3 07 / / Spn Plt Vct L3 57 - [id number] 1 Implanted:Qt y: 1 on 09/12/2018 by Shahriar Duarte M.D., Ph.D. at [facility] Hardware e.g. pins/screws /rods Depuy Synthes 04.613.2 57 / / Spn Scrw Vct Sfdr 4x18 - [id number] 1 Implanted:Qt y: 4 on 09/12/2018 by Shahriar Duarte M.D., Ph.D. at [facility] Hardware e.g. pins/screws /rods Depuy Synthes 04.613.5 18 / / Spn Scrw Vctt Sfdr 4x18 - [id number] 1 Implanted:Qt y: 4 on 09/12/2018 by Shahriar Duarte M.D., Ph.D. at [facility] Hardware e.g. pins/screws /rods Depuy Spine 04.613.7 18 / / Spacer Syncage Sm 12 6deg - [id number] Implanted:Qt y: 1 on 05/16/2018 by Shahriar Duarte M.D., Ph.D. at [facility] Spine Implant Spine Lumbar [employer] 08/28/2027 08.825.1 02S / / [id number] Spacer Syncage Bam Sm 13.5mm 6 - [id number] Implanted:Qt y: 1 on 05/16/2018 by Shahriar Duarte M.D., Ph.D. at [facility] Spine Implant Spine Lumbar Depuy [employer] [id number] 03/28/2023 08.825.1 03S / / [id number] Procedures Procedure Name Priority Date/Time Associated Diagnosis Comments COLONOSCOPY Routine 11/09/2019 7:42 AM CDT Amyloidosis (HCC) GLUCOSE, FASTING, S/P Routine 10/16/2019 11:43 AM ARMY RANGER Failure Heart Biventricular (HCC) Amyloidosis (HCC) from Last 3 Months or Most Recently Relevant to Health Maintenance Results * Glucose, Fasting (10/16/2019 11:43 AM ARMY RANGER) Glucose, P 81 70 - 100 mg/dL 10/16/2019 1:03 PM ARMY RANGER DTL Last Intake 17 hr 10/16/2019 12:45 PM ARMY RANGER DTL Blood (Blood, Venous) 10/16/2019 11:43 AM ARMY RANGER 10/16/2019 12:45 PM ARMY RANGER Kb Longo M.D., Ph.D. LAB BLOOD NON ADD-ON Fi nal Result [facility] [address] [place] [address], [facility] [address] [place] [address] from Last 3 Months or Most Recently Relevant to Health Maintenance Insurance MEDICARE [facility] ADMINISTRATORS Advance Directives For more information, please contact: [phone] Documents on File Type Date Recorded Patient Visualizer Expl anation Advance Directives 05/22/2018 2:47 PM [...] Agents on File Name Relationship Healthcare Agent [facility] Communication Neri Wong Spouse Health Care Agent
--- OUTSIDE RECORDS SUMMARY | 2024-09-07 12:29 | XMS_ITS | Encounter Summary ---
Author Organization [facility] Address [address] [place] [address] Care Team Providers Care It Service Technician Name Role Phone Unavailable Primary Care Provider Unavailabl e Encounter Details Date Type Department Care Team (Late st Contact Info) Description 11/11/2011 Historical Ophthalmology RST O[facility] Vince Nolan M.D. [address] [place] [address] Social History Tobacco Use Types Packs/Day Years Used Date Smoking Tobacco: Never Assessed Sex and Gender Information Value Date Recorded Sex Assigned at Not on file Legal Sex Male 6:48 AM [employer] Gender Identity Not on file Sexual Orientation Not on file documented as of this encounter Progress Notes * Vince Nolan M.D. - 11/11/2011 11:55 AM CDT Eye General CHIEF COMPLAINT s/p PTK left eye 09-28-2011 HISTORY OF PRESENT ILLNESS Occasional foreign body sensation in left eye, no pain. IMPRESSION / REPORT / PLAN #1 s/p Phototherapeutic keratectomy, left eye. Doing well. Subjective improvement in vision Continue Restasis 2x/day both eyes Follow-up with Dr. Kenney. DIAGNOSIS #1 s/p Phototherapeutic keratectomy, left eye. CDM Reports - EYEGEN Id: [id number] Status: Fnl documented in this encounter Plan of Treatment Not on file documented as of this encounter Visit Diagnoses Not on filedocumented in this encounter
[2024-09-07 12:41] VITALS: BP 139/77; PULSE 68; RESP 20; TEMP 37; O2SAT 96; BMI 31.5
--- NOTE | 2024-09-07 13:00 | CRLHL7_ITS ---
For Patients: As a result of the Century Cures Act, medical imaging exams and procedure reports are released immediately into your electronic medical record. You may view this report before your referring provider. If you have questions, please contact your health care provider. INDICATION: FALL R SHOULDER PAIN. TECHNIQUE: CT of the cervical spine was performed without intravenous contrast. COMPARISON: Report 09/03/2024. FINDINGS: Alignment: Normal. Vertebrae: Vertebral bodies and posterior elements are intact without acute fracture. Moderate degenerative changes of the visualized spine. Postsurgical changes from anterior cervical discectomy and fusion from C3-C6. Postsurgical changes from posterior spinal fusion from C4 to C7. C5-6 posterior decompression. Extra-vertebral soft tissues: Normal. Visualized brain: Normal. Additional comment: None. IMPRESSION: No acute displaced fracture or malalignment of the cervical spine. Postsurgical changes as described above. Please note that all CT scans at this facility use dose modulation, iterative reconstruction, and/or weight-based dosing when appropriate to reduce radiation dose to as low as reasonably achievable. Dictated by Darshan Garcia MD @ 09/07/2024 1:55:41 PM (Electronically Signed)
--- NOTE | 2024-09-07 13:00 | CRLHL7_ITS ---
For Patients: As a result of the Century Cures Act, medical imaging exams and procedure reports are released immediately into your electronic medical record. You may view this report before your referring provider. If you have questions, please contact your health care provider. INDICATION: Fall. Right shoulder pain. TECHNIQUE: CT chest was acquired without contrast. COMPARISON: None. FINDINGS: Lungs: No suspicious nodules, infiltrates or mass lesions. Pleura: No effusions or pneumothorax. Heart: Heart size is normal. No pericardial effusion. Aorta and Pulmonary Arteries: Dilation. Erin and Mediastinum : No lymphadenopathy or mass lesions. Chest wall: No masses. Bones: Unremarkable for age. No fracture deformities demonstrated. Upper abdomen: Normal. IMPRESSION: No CT findings for acute or active intrathoracic disease. Please note that all CT scans at this facility use dose modulation, iterative reconstruction, and/or weight-based dosing when appropriate to reduce radiation dose to as low as reasonably achievable. Dictated by Gregorio Glover MD @ 09/07/2024 1:56:29 PM (Electronically Signed)
--- NOTE | 2024-09-07 13:00 | CRLHL7_ITS ---
For Patients: As a result of the Century Cures Act, medical imaging exams and procedure reports are released immediately into your electronic medical record. You may view this report before your referring provider. If you have questions, please contact your health care provider. INDICATION: FALL R SHOULDER PAIN TECHNIQUE: CT of the head was performed without IV contrast. COMPARISON: None. FINDINGS: Parenchyma: No acute hemorrhage, infarction, or mass. Mild scattered periventricular white matter hypoattenuation is nonspecific and is favored to represent chronic small vessel ischemic disease. Ventricles and extra-axial spaces: Mild involutional changes. Visualized paranasal sinuses: Clear. Mastoid air cells: Status post right mastoidectomy. Bones: No focal abnormality. Additional comment: Small left frontal scalp lipoma. IMPRESSION: No acute intracranial abnormality. Please note that all CT scans at this facility use dose modulation, iterative reconstruction, and/or weight-based dosing when appropriate to reduce radiation dose to as low as reasonably achievable. Dictated by Darshan Garcia MD @ 09/07/2024 1:49:48 PM (Electronically Signed)
--- NOTE | 2024-09-07 13:01 | ED_ITS ---
HPI - General Adult General Chief complaint: Extremity Pain/Injury, Upper Stated complaint: (R) arm injury Time Seen by Provider: 09/07/24 12:27 History of Present Illness HPI narrative: Patient is a 69-year-old gentleman who was on a 3 ft stepladder last night which collapsed. Patient has had spinal fusions in the past and he landed on the right shoulder and neck. Does not believe he hit his head or lost consciousness. He was able to get himself up. Today the pain is localized to the posterior right shoulder with radiation to the cervical region. He is unable to lift his right arm due to discomfort in the scapular region. He has no long bone pain of the humerus no elbow pain no wrist pain. He has had no other neurologic symptoms and otherwise been in his normal health. Patient had increased pain overnight comes emergency room for evaluation. He has a slight scrape on the right side of his abdomen but no abdominal pain. Related Data Home Medications ?Medication ?Instructions ?Recorded ?Confirmed atorvastatin 20 mg tablet 20 mg PO QPM 09/02/23 09/02/23 celecoxib 200 mg capsule 200 mg PO DAILY 09/02/23 09/02/23 gabapentin 300 mg capsule 600 mg PO 3XD 09/02/23 09/02/23 tamsulosin 0.4 mg capsule 0.4 mg PO DAILY 09/02/23 09/02/23 Allergies Allergy/AdvReac Type Severity Reaction Status Date / Time amoxicillin Allergy Unknown Verified 09/02/23 14:56 Review of Systems Status of ROS: Reports: 10 or more systems reviewed and unremarkable except as noted in History and below PFSH PFS Social History Smoking Status: Unknown if ever smoked Do you use any of these nicotine containing products: None How often do you have a drink containing alcohol: never AUDIT-C Alcohol total score: 0 Non-prescribed substance use: denies use Exam Narrative: Exam Narrative: EXAM GENERAL: Patient appears comfortable and well. EYES: No scleral icterus. ENT: Tympanic membranes and oropharynx normal. THYROID: no thyroid nodules or thyromegaly. LYMPH: No supraclavicular or cervical lymphadenopathy. SKIN: He does have slight abrasion over the right mid and lower abdomen. EXT: No dependent lower extremity pedal edema. HEART: Regular rate and rhythm with no murmurs, rubs, or gallops. LUNGS: Clear to auscultation bilaterally with no crackles or wheezes. ABD: Soft, non tender, non distended. PSYCH: Good eye contact, speech is not pressured. Musculoskeletal pain to palpation normal range of motion of the neck. He is somewhat guarded the right shoulder and is not tolerate range of motion. No other palpable abnormalities. Const: Vital Signs, click to edit/add: Vital Signs - 24 hr 09/07/24 12:41 Temperature 98.6 F Pulse Rate [Pulse Oximeter] 68 Respiratory Rate 20 Blood Pressure [Le ft Upper Arm] 139/77 Pulse Oximetry 96 Oxygen Delivery Me thod Room Air Course Course ED Course: Patient seen examined. CT head neck and thorax pending. Will follow up based on those results. Vital Signs Vital signs: Initial Vital Signs Temperature 98.6 F 09/07/24 12:41 Temperature Source Temporal Artery Scan 09/07/24 12:41 Pulse Rate 68 09/07/24 12:41 Pulse Rhythm Regular 09/07/24 12:41 Respiratory Rate 20 09/07/24 12:41 Blood Pressure 139/77 09/07/24 12:41 Blood Pressure Mean 97 09/07/24 12:41 Blood Pressure Position High-Fowlers 09/07/24 12:41 Pulse Oximetry 96 09/07/24 12:41 Oxygen Delivery Method Room Air 09/07/24 12:41 Vital Signs Temperature 98.6 F 09/07/24 12:41 Pulse Rate 68 09/07/24 12:41 Respiratory Rate 20 09/07/24 12:41 Blood Pressure 139/77 09/07/24 12:41 Pulse Oximetry 96 09/07/24 12:41 Oxygen Delivery Method Room Air 09/07/24 12:41 Temperature 98.6 F 09/07/24 12:41 Pulse Rate 68 09/07/24 12:41 Respiratory Rate 20 09/07/24 12:41 Blood Pressure 139/77 09/07/24 12:41 Pulse Oximetry 96 09/07/24 12:41 Oxygen Delivery Method Room Air 09/07/24 12:41 Medical Decision Making MDM Narrative Medical decision making narrative: Patient is a 69-year-old gentleman who fell injuring his right shoulder. Patient's previous cervical effusions and did his head during the fall. As result I did scan his head neck had no acute changes were noted CT of the chest shows no rib fractures were pathology in the shoulder or proximal humerus. I suspect he has a rotator cuff tear. Did place him in a sling and recommended range of motion activities. If he does not have improvement would consider MRI for possible rotator cuff tear. Otherwise Tylenol Motrin ice follow-up with his doctor early next week. Discharge Plan Discharge Clinical Impression: Injury of shoulder, right Patient Disposition: Home, Self-Care Condition: Stable Instructions: Rotator Cuff Injury (ED), How to Use a Sling (ED) Additional Instructions: Ice Tylenol Motrin Sling as needed Encourage range of motion activities several times per day. Follow-up with your doctor next week to discuss MRI. Activity Level: No Restrictions Discharge Diet: Regular Prescriptions: No Action celecoxib 200 mg capsule 200 mg PO DAILY atorvastatin 20 mg tablet 20 mg PO QPM tamsulosin 0.4 mg capsule 0.4 mg PO DAILY gabapentin 300 mg capsule 600 mg PO 3XD Follow Up/Referrals: Elliott Kelley MD [Primary Care Provider] - Stand Alone Forms: [employer] Info Instructions
== END 2024-09-07 14:26 | disposition home or self-care (01) ==
PROVIDERS: Emergency Provider Internal Medicine; PCP Surgery
DX: S49.91XA Unspecified injury of right shoulder and upper arm, initial encounter (principal); W10.8XXA Fall (on) (from) other stairs and steps, initial encounter
CPT/HCPCS: 70450; 71250; 72125; 99283; 99285

== ENCOUNTER 2024-11-16 10:04 | Outpatient (CLI) | payer MEDICARE, BC, SELFPAY | END 2024-11-16 10:05 | disposition home or self-care (01) | LOC: INJ CL 10:07 | PROVIDERS: PCP Surgery; Visit Provider Family Medicine | DX: M54.16 Radiculopathy, lumbar region (principal); M51.369 Other intervertebral disc degeneration, lumbar region without mention of lumbar back pain or lower extremity pain | CPT/HCPCS: 64483; J1100; Q9966 ==